=== PATIENT | male | born 1980 | race Caucasian/White ===

== ENCOUNTER 2017-11-01 20:24 | Emergency (ER) | payer OTHER ==
--- NOTE | 2017-11-01 20:49 | ER Report ---
History and Physical Time Seen By MD: 20:49 Hx. of Stated Complaint: left wrist pain HPI/ROS CHIEF COMPLAINT: wrist pain HISTORY OF PRESENT ILLNESS: This is a 36 year old male. Injured left wrist yesterday while putting a tarp over a trailer. Fell and landed on wrist. Abrasion on ulnar side. Pain and swelling, seems worse today. Pain worsens with movement. Taking Ibuprofen, but not helping much. Allergies: Coded Allergies: No Known Drug Allergies (Unverified , 11/01/17) Home Meds No Active Prescriptions or Reported Meds Reviewed Nurses Notes: Yes Hx Smoking: Yes Exposure to Second Hand Smoke?: Yes Hx Substance Use Disorder: No Hx Alcohol Use: No Constitutional Vital Sign - Last 24 Hours 11/01/17 11/01/17 11/01/17 11/01/17 20:32 20:33 20:54 21:14 Temp 98.9 Pulse 90 87 Resp 12 B/P (MAP) 126/81 126/81 (96) 123/80 (94) Pulse Ox 95 89 O2 Delivery Room Air Room Air 11/01/17 11/01/17 21:24 21:30 Pulse 88 B/P (MAP) 119/72 (88) Pulse Ox 91 O2 Delivery Room Air Physical Exam General appearance: alert, no distress. Left wrist: There is no asymmetry. There is some mild swelling throughout the wrist. There is no obvious deformity. No tenderness over the anatomic snuff box. Tenderness over the radial side and the ulnar styloid. No tenderness over the metacarpals. Neurologic exam: The patient has normal sensation distal to the injury. Active range of motion is intact, but with pain. Vascular exam: Normal pulses and capillary refill. DIFFERENTIAL DIAGNOSIS: After history and physical exam, differential diagnosis was considered for wrist injury including sprain, fracture, dislocation and soft tissue injury. Medical Decision Making EKG/Imaging Imaging WRIST: Indication: Injury. Technique: 3 views were obtained. Comparison: None. Findings: There is no evidence of fracture, dislocation, or other acute deformity. There is uniform mineralization of the skeletal structures. There is no evidence of joint space narrowing or osteophyte formation. No periarticular calcification or soft tissue adenopathy is identified. IMPRESSION: Negative left wrist. Report Dictated By: Merrick Mace MD at 11/01/2017 9:31 PM ED Course/Re-evaluation ED Course No fracture. Reviewed results of imaging with the patient. See conservative m easures discussed below. JOLENE wrap provided. Decision to Disposition Date: Nov 01, 2017 Decision to Disposition Time: 21:42 Depart Departure Latest Vital Signs Vital Signs Date Time Temp Pulse Resp B/P (MAP) Pulse Ox O2 Delivery O2 Flow Rate FiO2 11/01/17 21:30 119/72 (88) 11/01/17 21:24 88 91 Room Air 11/01/17 20:32 98.9 12 Impression: Primary Impression: Left wrist sprain Condition: Improved Disposition: HOME OR SELF-CARE New Scripts No Active Prescriptions or Reported Meds Patient Instructions: Wrist Sprain (ED) Additional Instructions: Ibuprofen 200mg over the counter tablets, take 4 tablets three times a day with food. Apply ice 20 minutes every 1-2 hours while awake. An JOLENE wrap can be used for compression to help reduce swelling. Rest the injured area, keep it elevated while at rest. Begin gentle range of motion exercises. Problem Qualifiers Primary Impression: Left wrist sprain Encounter type: initial encounter Qualified Codes: S63.502A - Unspecified sprain of left wrist, initial encounter COMPA KERNS MD Nov 01, 2017 20:49
[2017-11-01 21:30] VITALS: BP 119/72
--- NOTE | 2017-11-01 21:38 | RADIOLOGY IMAGING REPORT ---
FACILITY: [facility] - [place] PATIENT NAME: Satish Van : 1980 MR: [id number] V: [id number] EXAM DATE: ORDERING PHYSICIAN: COMPA KERNS TECHNOLOGIST: Location: [facility] - [place] Patient: Satish Van : 1980 Visit/Account:[id number] Date of Sevice: 11/01/2017 WRIST: Indication: Injury. Technique: 3 views were obtained. Comparison: None. Findings: There is no evidence of fracture, dislocation, or other acute deformity. There is uniform m ineralization of the skeletal structures. There is no evidence of joint space narrowing or osteophyte formation. No periarticular calcification or soft tissue adenopathy is identified. IMPRESSION: Negative left wrist. Report Dictated By: Merrick Mace MD at 11/01/2017 9:31 PM Report E-Signed By: Merrick Mace MD at 11/01/2017 9:33 PM WSN:[id number]
== END 2017-11-01 21:51 | disposition home or self-care (01) ==
LOC: ER 20:31
DX: S63.502A Unspecified sprain of left wrist, initial encounter (principal); W23.0XXA Caught, crushed, jammed, or pinched between moving objects, initial encounter